=== PATIENT | male | born 1955 | race Caucasian/White ===

== ENCOUNTER → 2018-11-28 | Outpatient (CLI) | payer MEDICARE, BC | LOC: LAB SHORT 13:53 → PLD 13:53 | DX: L57.0 Actinic keratosis (principal) | CPT/HCPCS: 88305 ==

== ENCOUNTER → 2020-08-26 | Outpatient (CLI) | payer MEDICARE, BC | END | disposition home or self-care (01) | LOC: LAB 12:00 → LAB SHORT 12:00 | DX: L57.0 Actinic keratosis (principal); D23.111 Other benign neoplasm of skin of right upper eyelid, including canthus | CPT/HCPCS: 88305 ==

== ENCOUNTER → 2023-01-23 | Outpatient (CLI) | payer MEDICARE, BC | END | disposition home or self-care (01) | LOC: LAB 12:06 → PLD 12:06 → LAB SHORT 12:06 | DX: L57.0 Actinic keratosis (principal) | CPT/HCPCS: 88305 ==